=== PATIENT | male | born 1945 | race Caucasian/White ===

== ENCOUNTER 2017-06-11 13:35 | Observation (INO) ==
[2017-06-11] MEDS ORDERED: Aspirin 81 MG TAB.CHEW PO ONE (13:50)
[2017-06-11] MEDS ORDERED: Nitroglycerin 0.4 MG TAB.SUBL SL PRN ×2 (13:55→16:09)
[2017-06-11] MEDS ORDERED: 0.9 % Sodium Chloride 1,000 ML IVC ONE ×2 (13:56→15:40)
[2017-06-11 14:10] LABS: Basophils % 0.7 %; Eosinophils # 0.2 K/mcL (0.0-0.6); Eosinophils % 3.3 %; Hematocrit 38.9 % (37.5-50.1); Hemoglobin 13.8 g/dL (12.9-16.9); Immature Granulocytes % 0.7 % (0-4); Lymphocytes # 0.7 K/mcL (0.6-4.6); Lymphocytes % 13.3 %; Mean Corpuscular HGB Conc 35.5 g/dL (31.6-35.5); Mean Corpuscular Hemoglobin 31.2 pg (28.0-33.3); Mean Corpuscular Volume 87.8 fL (83.0-100.0); Mean Platelet Volume 8.6 fL (9.4-12.4); Monocytes # 0.6 K/mcL (0.0-1.3); Monocytes % 10.2 %; Neutrophils # 3.9 K/mcL (1.6-8.9); Platelet Count 244 K/mcL (140-400); Red Blood Count 4.43 M/mcL (4.19-5.50); Red Cell Distribution Width 13.1 % (11.5-14.5); Segmented Neutrophils % 71.8 %
[2017-06-11 14:15] LABS: Prothrombin Time 10.7 Seconds (9.4-12.1)
[2017-06-11 14:17] LABS: Activated Partial Thrombo Time 33.4 Seconds (26.0-36.0)
[2017-06-11 14:20] LABS: Calcium 9.4 mg/dL (8.6-10.8); Potassium 3.7 mEq/L (3.5-4.5)
--- NOTE | 2017-06-11 14:57 | Emergency Department Note ---
Disposition Clinical Impression: Unstable angina CKD (chronic kidney disease) Qualifiers: Chronic kidney disease stage: unspecified stage Qualified Code(s): N18.9 - Chronic kidney disease, unspecified Disposition: Admitted As Inpatient Condition: Fair Time of Disposition: 15:14 General Adult HPI - General Chief complaint: ED Chest Pain Stated complaint: Chest Pain Time Seen by Provider: 06/11/17 13:49 Source: patient Limitations: no limitations Nursing Notes Reviewed: Yes Vital Signs Reviewed: Yes - History of Present Illness HPI Narrative: 72-year-old male presents to the emergency department after his auto bumper straightener Dr. Hernandez sent him here with concern for worsening chest tightness over the period of the last 4 weeks has gotten increasingly worse for him. The patient has a known history of coronary artery disease with 3 stent placement. The patient's stating that he has episodes that last approximately 3-15 seconds at a time. He states that they happen multiple times. Says that he has chest tightness that radiates up into his neck as well as his left arm. Patient states nothing makes it better. Patient's out of his nitroglycerin. Pain Scale: 10 - Related Data Home Medications Medication Instructions Recorded Confirmed ALPRAZolam [Xanax 1 MG Tablet] 06/11/17 Gabapentin [Neurontin] 06/11/17 Oxycodone Myristate [Xtampza ER] 06/11/17 Ranolazine [Ranexa] 06/11/17 Allergies Allergy/AdvReac Type Severity Reaction Status Date / Time No Known Allergies Allergy Verified 06/11/17 13:39 All systems ED: reviewed and negative except as stated. Review of Systems: As Per HPI Constitutional: Denies: fever Cardiovascular: Reports: chest pain Respiratory: Denies: dyspnea Gastrointestinal: Reports: nausea. Denies: abdominal pain, vomiting Genitourinary: Denies: urgency Musculoskeletal: Denies: back pain Integumentary: Denies: rash Neurological: Denies: headache Psychiatric: Denies: anxiety Past Medical History - Past Medical History Medical history: Reports: hypertension Psychiatric history: Reports: no psych history - Social History Smoking Status: Former smoker Smokeless Tobacco Status: No Alcohol use: Reports: none Drug use: Reports: none Physical Exam General: Well-appearing male who clenches his chest for approximately few seconds appears to be in moderate distress. Head: autraumatic, EOMI, no conjuncitval pallor, no scleral icterus, Mouth: oral mucous membranes moist Neck: neck soft, trachea midline Chest:: Equal chest wall rise Lungs: Normal lungs sounds bilaterally, no wheezes, no respiratory distress Heart: normal heart sounds, normal rate and rhythm, Abdomen: soft, non-tender, no rigidity, no guarding, no rebdound tenderness Lower Extremities: no pedal edema, calves non-tender Integumentary: Skin warm, dry, and intact Neuro: Alert Psych: normal affect, normal mood - General Limitations: no limitations General appearance: alert, in no apparent distress Course Vital Signs Temperature 97.8 F 06/11/17 13:40 Pulse Rate 73 06/11/17 13:40 Respiratory Rate 18 06/11/17 13:40 Blood Pressure 138/76 06/11/17 13:40 O2 Sat by Pulse Oximetry 91 06/11/17 13:40 Temperature 97.8 F 06/11/17 13:40 Pulse Rate 54 06/11/17 14:50 Respiratory Rate 16 06/11/17 14:50 Blood Pressure 112/69 06/11/17 14:50 O2 Sat by Pulse Oximetry 96 06/11/17 14:50 Oxygen Delivery Oxygen Delivery Room Air Medical Decision Making - MDM Narrative Medical decision making narrative: This is a 72-year-old male past medical history of 3 stents due to coronary artery disease. Patient presents to the emergency department after his auto bumper straightener Dr. Hernandez sent him here with concern for his worsening chest pain. Patient is having episodes of chest tightness with radiation to his neck and left arm that are concerning for unstable angina. Patient is not having any new acute changes on his electrocardiogram that are concerning for STEMI or NSTEMI at this time. Troponin was negative. Chest x-ray was also negative. Patient's creatinine shows elevation of 2.44. Patient does have previous history of chronic kidney disease, but I have no records to show if this is an acute process or chronic. I have spoken to Dr. Sanchez, his csm consultant and he states that his last creatinine was 2.4 with a GFR of 27. I have consulted Dr. Hernandez, the auto bumper straightener regarding this patient as he has had several episodes of this chest tightness in the emergency department that was unresponsive to sublingual nitroglycerin. He stated he would come down and see the patient and decide whether he would want to perform a heart catheterization or not. I admitted this patient to the hospitalist. It was recommended that I start nitroglycerin drip as well as IV heparin. Patient has already been Provided 325 aspirin in the emergency department. I discussed the plan with the patient and and they agree with the plan of admitting. Cardiology has come down and they are currently in the room examining the patient. Patient has been given 2 L of normal saline here in the emergency department. Chest X-Ray 06/11/17 13:49 IMPRESSION: Focal opacity in the left lung base may represent focal atelectasis versus consolidation from pneumonia. D/ / 06/11/2017 15:31:54 Jsoh Sierra MD / petey Interpreting Provider: Josh Sierra MD Vital Signs Temperature 97.8 F 06/11/17 13:40 Pulse Rate 73 06/11/17 13:40 Respiratory Rate 18 06/11/17 13:40 Blood Pressure 138/76 06/11/17 13:40 O2 Sat by Pulse Oximetry 91 06/11/17 13:40 Temperature 97.8 F 06/11/17 13:40 Pulse Rate 54 06/11/17 14:50 Respiratory Rate 16 06/11/17 14:50 Blood Pressure 112/69 06/11/17 14:50 O2 Sat by Pulse Oximetry 96 06/11/17 14:50 Oxygen Delivery Oxygen Delivery Room Air - Medical Records Medical records reviewed: Yes I reviewed the patient's medical records. - Lab Data Lab results reviewed: Yes I reviewed the patient's lab results. Result diagrams: 06/11/17 13:54 06/11/17 13:54 Lab Results 06/11/17 06/11/17 06/11/17 Range/Units 13:54 13:54 13:54 WBC 5.4 (4.3-11.1) K/mcL RBC 4.43 (4.19-5.50) M/mcL Hgb 13.8 (12.9-16.9) g/dL Hct 38.9 (37.5-50.1) % MCV 87.8 (83.0-100.0) fL MCH 31.2 (28.0-33.3) pg MCHC 35.5 (31.6-35.5) g/dL RDW 13.1 (11.5-14.5) % Plt Count 244 (140-400) K/mcL MPV 8.6 L (9.4-12.4) fL Immature Gran % 0.7 (0-4) % Seg Neutrophils % 71.8 % Lymphocytes % 13.3 % Monocytes % 10.2 % Eosinophils % 3.3 % Basophils % 0.7 % Neutrophils # 3.9 (1.6-8.9) K/mcL Lymphocytes # 0.7 (0.6-4.6) K/mcL Monocytes # 0.6 (0.0-1.3) K/mcL Eosinophils # 0.2 (0.0-0.6) K/mcL Basophils # 0.0 (0.0-0.2) K/mcL PT 10.7 (9.4-12.1) Seconds INR 1.0 APTT 33.4 (26.0-36.0) Seconds Sodium 142 (136-145) mEq/L Potassium 3.7 (3.5-4.5) mEq/L Chloride 104 (98-109) mEq/L Carbon Dioxide 28 (19-29) mEq/L BUN 31 H (8-26) mg/dL Creatinine 2.44 H (0.72-1.25) mg/dL Est GFR ( Amer) 32 L (> 60) Est GFR (Non-Af Amer) 26 L (> 60) BUN/Creatinine Ratio 13 (6-26) Glucose 100 H (70-99) mg/dL Calculated Osmolality 301 H (280-300) Calcium 9.4 (8.6-10.8) mg/dL Troponin I (0-0.03) ng/mL 06/11/17 Range/Units 13:54 WBC (4.3-11.1) K/mcL RBC (4.19-5.50) M/mcL Hgb (12.9-16.9) g/dL Hct (37.5-50.1) % MCV (83.0-100.0) fL MCH (28.0-33.3) pg MCHC (31.6-35.5) g/dL RDW (11.5-14.5) % Plt Count (140-400) K/mcL MPV (9.4-12.4) fL Immature Gran % (0-4) % Seg Neutrophils % % Lymphocytes % % Monocytes % % Eosinophils % % Basophils % % Neutrophils # (1.6-8.9) K/mcL Lymphocytes # (0.6-4.6) K/mcL Monocytes # (0.0-1.3) K/mcL Eosinophils # (0.0-0.6) K/mcL Basophils # (0.0-0.2) K/mcL PT (9.4-12.1) Seconds INR APTT (26.0-36.0) Seconds Sodium (136-145) mEq/L Potassium (3.5-4.5) mEq/L Chloride (98-109) mEq/L Carbon Dioxide (19-29) mEq/L BUN (8-26) mg/dL Creatinine (0.72-1.25) mg/dL Est GFR ( Amer) (> 60) Est GFR (Non-Af Amer) (> 60) BUN/Creatinine Ratio (6-26) Glucose (70-99) mg/dL Calculated Osmolality (280-300) Calcium (8.6-10.8) mg/dL Troponin I 0.01 (0-0.03) ng/mL - Radiology Data Radiology results reviewed: Yes I reviewed the patient's radiology results. - EKG Data EKG #1 EKG attestation: Yes I reviewed and interpreted this EKG. EKG results narrative: 13:53 Ventricular rate 66 bpm, NC interval 234 ms, QRS duration 105 ms, QT 409 ms, QTC 423 ms, normal axis. Sinus rhythm with a ventricular rate of 66 bpm. First-degree AV block and deep Q waves in the inferior leads suggestive of an old infarct. No previous EKG to compare this study too.
[2017-06-11] MEDS ORDERED: *HR* Morphine 2 MG/ML SYRINGE IVP ONE (15:09)
[2017-06-11 15:38] LABS: Bilirubin,Urine Negative (Negative); Blood,Urine Negative (Negative); Clarity,Urine Clear (Clear); Color,Urine Yellow (Yellow); Glucose,Urine (UA) Normal (Normal); Ketones,Urine Negative (Negative); Leukocyte Esterase,Urine Negative (Negative); Nitrite,Urine Negative (Negative); PH,Urine 6.5 pH Units (5.0-8.0); Protein,Urine Negative (Neg-Trace); Specific Gravity,Urine 1.015 (1.010-1.025); Urobilinogen,Urine Normal (Normal)
[2017-06-11] MEDS ORDERED: *HR* Heparin 5,000 UNIT/ML VIAL IVP PRN ×2 (15:39)
[2017-06-11] MEDS ORDERED: *HR* Heparin 5,000 UNIT/ML VIAL IVP ONE (15:39)
--- NOTE | 2017-06-11 15:43 | Emergency Department Note ---
START Narrative - START START: I examined this patient and my medical decision-making was reviewed with the Resident Physician. I agree with the documented findings, disposition and treatment plan as described except to the extent set forth below. 72 year old male who is a patient of Dr. Hernandez and sent to us by cardology nurse practioner has a history of 3 vessle CABG and stents and states that he has had progressive midsternal chest pain with exertional dyspnea and was instructed to come here for further evlaution and managent for his unstable angina and admitted. His chest pain is curently present and we have stated nitro drip and heparin drip per request of the hospitalist and cardiioogy will see him as consult. P
[2017-06-11] MEDS ORDERED: Heparin 25,000 UNIT/500 ML D5W 25,000 UNIT/500 ML MLS IVC SCH (15:45)
--- NOTE | 2017-06-11 15:54 | Internal Med History&Physical ---
<DuncanKiet - Last Filed: 06/11/17 16:14> Date of Encounter: 06/11/17 Time of Encounter: 15:51 Assessment and Plan (1) Unstable angina Current visit: Yes Status: Acute Patient presents with typical substernal chest pain that is worse with exertion and relieved with rest He has been started on heparin and nitroglycerin drip in the ED Cardiology has been consulted, appreciate recommendations on if he needs left heart cath; will make NPO for now Initial troponin is negative, will trend 2 Continue with home aspirin, beta boy, statin (2) YAZMIN (acute kidney injury) Current visit: Yes Status: Acute Patient's initial creatinine was 2.44, but we are unsure of his baseline We will hold his home Lasix for now until we can trend his creatinine Avoid nephrotoxic agents and closely monitor electrolytes (3) CHF (congestive heart failure) Current visit: Yes Status: Chronic Unclear if patient has systolic or diastolic CHF as there is no echocardiogram in our system We will not initiate diuresis at this time as we are unsure of baseline kidney function and patient's edema is better than baseline We will follow cardiology recommendations if patient will get catheterization and would need echocardiogram (4) Hypertension Current visit: Yes Status: Chronic Blood pressure within normal limits upon arrival to ED We will continue his home anti-hypertensive medications (5) CAD (coronary artery disease) Current visit: Yes Status: Chronic Patient continues to be in chest pain and troponins have been negative Continue on home aspirin, beta boy, Lipitor (6) DVT prophylaxis Current visit: Yes Status: Acute Heparin drip as above Internal Medicine - H&P: HPI Chief complaint: Chest pain Admitted From: Home Plans for Post Hospital Care: Home History of present illness: Mr. Cantu is a 72 year old male who presents to the emergency department with 5 weeks of intermittent chest pain. He states that his physician Dr. Hernandez told him to report to the emergency department. He describes it as left-sided and radiates to his left arm and up his neck and reports this is similar to when he had previous heart attacks. Although he has chest pain even at rest, the pain is worse with exertion and relieved with rest. He also reports having shortness of breath during this time. Patient denies any hemoptysis, nausea, vomiting, diaphoresis, palpitations but does have some dizziness. Of note, patient does have previous [place] including having 4 stents placed, but does not remember when he had his last cath. He also has history of high blood pressure and congestive heart failure and is on diuretics at home. Past Med Surg Social Fam HX - Past Medical History Medical history: hypertension Psychiatric history: no psych history - Social History Smoking Status: Former smoker Smokeless Tobacco Status: No Alcohol use: none Drug use: none Internal Medicine - H&P: Meds ALPRAZolam [Xanax 1 MG Tablet] 1 mg PO DAILY PRN 06/11/17 [History] Amlodipine Besylate 10 mg PO DAILY 06/11/17 [History] Aspirin 81 mg PO DAILY 06/11/17 [History] Atorvastatin [Lipitor] 40 mg PO HS 06/11/17 [History] Carvedilol 3.125 mg PO BID 06/11/17 [History] Cholecalciferol (Vitamin D3) [Vitamin D] 2,000 unit PO DAILY 06/11/17 [History] Cyanocobalamin (Vitamin B-12) [Vitamin B12] 2,500 mcg PO DAILY 06/11/17 [History ] Furosemide [Lasix] 40 mg PO BID 06/11/17 [History] Gabapentin [Neurontin] 300 mg PO QID 06/11/17 [History] Nitroglycerin [Nitrostat] 0.4 mg SL Q5M PRN 06/11/17 [History] [place]-3/Dha/Epa/Fish Oil [Fish Oil 1,000 mg Softgel] 1,000 mg PO DAILY 06/11/17 [History] Oxycodone HCl 15 mg PO Q6H PRN 06/11/17 [History] Oxycodone Myristate [Xtampza ER] 18 mg PO Q12H 06/11/17 [History] Ranolazine [Ranexa] 1,000 mg PO BID 06/11/17 [History] Sodium Bicarbonate 1,300 mg PO BID 06/11/17 [History] Tizanidine HCl 4 mg PO TID PRN 06/11/17 [History] metOLazone [Zaroxolyn] 2.5 mg PO 2XW PRN 06/11/17 [History] 3 Allergy/AdvReac Type Severity Reaction Status Date / Time No Known Allergies Allergy Verified 06/11/17 13:39 All Systems PM: A 10-system review of systems was performed and is negative for pertinent findings except as documented above in the HPI. - Constitutional Constitutional: no chills, no fever(s), no night sweats - EENT Eyes: no change in vision, no discharge, no pain, no photophobia Ears: no ear discharge, no ear pain, no tinnitus Nose, mouth and throat: no dysphagia, no nasal discharge, no neck pain, no sore throat - Cardiovascular Cardiovascular ROS IM: chest pain, dyspnea, dyspnea on exertion, no diaphoresis , no lightheadedness, no palpitations, no syncope - Respiratory Respiratory: no cough, no dyspnea, no wheezing, no excessive phlegm production - Gastrointestinal Gastrointestinal: no abdominal pain, no diarrhea, no hematemesis, no hematochezia, no melena, no nausea, no vomiting - Musculoskeletal Musculoskeletal ROS IM: no numbness, no tingling - Integumentary Integumentary IM: no rash, no unusual bruising - Neurological Neurological ROS: dizziness, no confusion, no convulsions, no focal weakness, no numbness, no tingling, no tremor(s) - Hematologic/Lymphatic Hematologic/Lymphatic: no easy bruising - Constitutional Vitals: Temp Pulse Resp BP Pulse Ox 97.8 F 54 16 112/69 96 06/11/17 13:40 06/11/17 14:50 06/11/17 14:50 06/11/17 14:50 06/11/17 14:50 General appearance: Present: cooperative, mild distress (from chest pain), pleasant, answers questions appropriately - Head Head exam: Present: atraumatic, normocephalic - Eye Eye exam: Present: PERRL, conjuntiva pink, sclera anicteric - Neck Neck exam general surgery: Present: supple, trachea midline. Absent: lymphadenopathy - Respiratory Respiratory exam: Present: CTAB. Absent: accessory muscle use, rales, rhonchi, wheezes - Cardiovascular Cardiovascular exam: Present: RRR, +S1, +S2. Absent: diastolic murmur, gallop, rubs, systolic murmur - GI/Abdominal GI/Abdominal exam: Present: normal bowel sounds, soft, no peritoneal signs. Absent: distended, tenderness - Extremities Exam Extremities exam: Present: pedal edema (1+ pitting bilaterally), warm, radial pulses palpable and symmetrical. Absent: calf tenderness, cyanotic - Neurological Exam Neurological exam: Present: alert, oriented X3, no focal deficits. Absent: facial droop, speech deficit - Skin Skin exam: Present: dry, intact Internal Med - H&P Results - Labs CBC & Chem 7: 06/11/17 13:54 06/11/17 13:54 <AbdirahmanAshley darnell - Last Filed: 06/11/17 17:24> Date of Encounter: 06/11/17 Internal Medicine - H&P: HPI History of present illness: Mr. Cantu is a 72 year old male All Systems PM: A 10-system review of systems was performed and is negative for pertinent findings except as documented above in the HPI. - Constitutional Vitals: Temp Pulse Resp BP Pulse Ox 97.8 F 54 16 112/69 96 06/11/17 13:40 06/11/17 14:50 06/11/17 14:50 06/11/17 14:50 06/11/17 14:50 Internal Med - H&P Results - Labs CBC & Chem 7: 06/11/17 13:54 06/11/17 13:54 - Attending Attestation I examined this patient and my medical decision-making was reviewed with the Resident Physician. I agree with the documented findings, disposition and treatment plan as described except to the extent set forth below. Mr. Cantu is a 72 year old male with a relevant past medical history of CAD with reported 4 stents, HTN, hyperlipidemia. Patient presented to [facility] with complaints of mid sternal chest pain. Patient states he has been having intermittent chest pain for the past couple of weeks. Patient reports chest pain is mostly with exertion. Patient reports worse episode of chest pain was this morning. Since pt morning pt has been having severe recurrent left substernal chest pain radiating to his Left arm. While I am talking to him he did express active chest pain Gen: A, A, O x3 - moderate distress with pain Heart: S1 S2 + RRR No murmurs Chest: Diminished BS b/l a/p 1. Acute unstable angina 2. h/o CAD s/p stents will admit the pt into step down unit No acute EKG changes.. So far negative initial trop Nitro gtt, Heparin gtt, ASA and cont home meds Card consulted stat 2. YAZMIN vs CKD does not know baseline will start him on Acetylcystien Hold on diuretics and Nephrotoxic meds May consult Nephro 3. Chronic CHF will get 2 D Ehco
[2017-06-11] MEDS ORDERED: Acetaminophen 325 MG TABLET PO PRN (16:06)
[2017-06-11] MEDS ORDERED: Ondansetron ODT 4 MG TAB.RAPDIS SL PRN (16:06)
[2017-06-11] MEDS ORDERED: *HR* Morphine 2 MG/ML SYRINGE IVP PRN (16:06)
[2017-06-11] MEDS ORDERED: Naloxone 0.4 MG/ML INJ IVP PRN (16:06)
[2017-06-11] MEDS ORDERED: ALPRAZolam 1 MG TABLET PO PRN (16:09)
[2017-06-11] MEDS: Nitroglycerin 25 MG/250 ML INFUS..BTL IVC SCH ×4 (16:23→19:00)
--- NOTE | 2017-06-11 16:24 | Cardiology Consult Note ---
Date of Encounter: 06/11/17 Time of Encounter: 15:45 Assessment and Plan (1) Unstable angina Current Visit: Yes Status: Acute Per cardiology: -Presented with chest pain with exertion. -Admits to current chest pain. -States symptoms progressive over the past couple of weeks. -Troponin negative. -NO acute ischemic ECG changes. -Recommend heparin drip and nitro drip (ordered by ED physician). -Will give 150mg of plavix now. -Will check CK now and repeat troponin now. -Will continue to monitor. (2) YAZMIN (acute kidney injury) Current Visit: Yes Status: Acute Per cardiology: -Creatinine 2.41. Unknown baseline. -Patient reports history of CKD, however states at his last nephro appointment, Physician said creatinine was "good." -Records requested from nephrology office, reports followed in [place]. -Per discussion with , will consult neprhology. -Spoke with regarding consult. (3) CAD (coronary artery disease) Current Visit: Yes Status: Chronic Per cardiology: -Reports history of CAD with reported 4 previous stents. -On asa, statin, beta boy, and plavix. -Will obtain records from guest services ambassador office. Qualifiers: Coronary Disease-Associated Artery/Lesion type: [place] artery [place] vs. transplanted heart: [place] heart Associated angina: with unstable angina Qualified Code(s): I25.110 - Atherosclerotic heart disease of [place] coronary artery with unstable angina pectoris Discussion w patient/family: The assessment and plan as outlined above was discussed with the patient and/or family members who expressed understanding and agreement. All questions were answered. Thank you for involving us in the care of your patient. Please call with any questions. Patient seen and examined with . History of Present Illness Consult date: 06/11/17 Requesting physician: Tony Christensen Consult reason: unstable angina Chief complaint: chest pain History of present illness: Mr. Cantu is a 72 year old male with a relevant past medical history of CAD with reported 4 stents, HTN, hyperlipidemia. Patient presented to [facility] with complaints of mid sternal chest pain. Patient states he has been having intermittent chest pain for the past couple of weeks. Patient reports chest pain is mostly with exertion. Patient reports worse episode of chest pain was this morning. Patient reports associated shortness of breath. Patient denies nausea, vomiting, or diaphoresis. Patient admits to current chest pain. Patient states his primary guest services ambassador is , however states has not seen for a while due to moving to [place] and issues with insurance credentialing. Past Med Surg Social Fam HX - Past Medical History Attestation: Yes The following information was validated with the patient. Source: patient, obtained from family Medical history: hypertension Psychiatric history: no psych history - Social History Smoking Status: Former smoker Smokeless Tobacco Status: No Alcohol use: none Drug use: none Medications and Allergies ALPRAZolam [Xanax 1 MG Tablet] 1 mg PO DAILY PRN 06/11/17 [History] Amlodipine Besylate 10 mg PO DAILY 06/11/17 [History] Aspirin 81 mg PO DAILY 06/11/17 [History] Atorvastatin [Lipitor] 40 mg PO HS 06/11/17 [History] Carvedilol 3.125 mg PO BID 06/11/17 [History] Cholecalciferol (Vitamin D3) [Vitamin D] 2,000 unit PO DAILY 06/11/17 [History] Cyanocobalamin (Vitamin B-12) [Vitamin B12] 2,500 mcg PO DAILY 06/11/17 [History ] Furosemide [Lasix] 40 mg PO BID 06/11/17 [History] Gabapentin [Neurontin] 300 mg PO QID 06/11/17 [History] Nitroglycerin [Nitrostat] 0.4 mg SL Q5M PRN 06/11/17 [History] Maud-3/Dha/Epa/Fish Oil [Fish Oil 1,000 mg Softgel] 1,000 mg PO DAILY 06/11/17 [History] Oxycodone HCl 15 mg PO Q6H PRN 06/11/17 [History] Oxycodone Myristate [Xtampza ER] 18 mg PO Q12H 06/11/17 [History] Ranolazine [Ranexa] 1,000 mg PO BID 06/11/17 [History] Sodium Bicarbonate 1,300 mg PO BID 06/11/17 [History] Tizanidine HCl 4 mg PO TID PRN 06/11/17 [History] metOLazone [Zaroxolyn] 2.5 mg PO 2XW PRN 06/11/17 [History] 3 Allergy/AdvReac Type Severity Reaction Status Date / Time No Known Allergies Allergy Verified 06/11/17 13:39 All Systems Review: A 10-system review of systems was performed and is negative for pertinent findings except as documented above in the HPI. - Cardiovascular Cardiovascular: as per HPI, chest pain with exertion, dyspnea on exertion Physical Examination Vital Signs Temperature 97.8 F 06/11/17 13:40 Pulse Rate 73 06/11/17 13:40 Respiratory Rate 18 06/11/17 13:40 Blood Pressure 138/76 06/11/17 13:40 O2 Sat by Pulse Oximetry 91 06/11/17 13:40 Temperature 97.8 F 06/11/17 13:40 Pulse Rate 54 06/11/17 14:50 Respiratory Rate 16 06/11/17 14:50 Blood Pressure 112/69 06/11/17 14:50 O2 Sat by Pulse Oximetry 96 06/11/17 14:50 Oxygen Delivery Oxygen Delivery Room Air General: Conversant, No Apparent Distress HEENT: Atraumatic, Normocephaly, Mucus Membranes Moist Neck: No JVD, Normal carotid pulses Cardiac: Reg Rate and Rhythm, Normal S1 and S2, No Murmur Lungs: Normal Breath Sounds, No Wheeze, Rales, Rhonchi Neuro: Alert and responsive, No focal deficits noted Abdomen: Soft, Non-Tender Skin: No rashes noted on visualized skin Musculoskeletal: No Chest Wall Tenderness Extremities: No Clubbing, No Cyanosis, No Edema, Normal Pulses Results 06/11/17 13:54 06/11/17 13:54 Impressions Chest X-Ray 06/11/17 13:49 IMPRESSION: Focal opacity in the left lung base may represent focal atelectasis versus consolidation from pneumonia. D/ / 06/11/2017 15:31:54 Josh Sierra MD / [email or web address] Interpreting Provider: Josh Sierra MD Active Medications Acetaminophen (Tylenol) 650 mg PO Q6HR PRN PRN Reason: Mild Pain (1-3) Stop: 12/11/17 16:07 Alprazolam (Xanax) 1 mg PO DAILY PRN; Protocol PRN Reason: Anxiety Stop: 12/11/17 16:10 Amlodipine Besylate (Norvasc) 10 mg PO DAILY [facility] Stop: 12/12/17 09:01 Aspirin (Aspirin) 81 mg PO DAILY [facility] Stop: 12/12/17 09:01 Atorvastatin Calcium (Lipitor) 40 mg PO HS [facility] Stop: 12/11/17 21:01 Carvedilol (Coreg) 3.125 mg PO BID [facility] Stop: 12/11/17 21:01 Heparin Sodium (Porcine) (Heparin) 4,000 unit IVP Q6HR PRN PRN Reason: SEE COMMENTS Stop: 12/11/17 15:40 Heparin Sodium (Porcine) (Heparin) 2,000 unit IVP Q6H PRN PRN Reason: SEE COMMENTS Stop: 12/11/17 15:40 Heparin Sodium/Dextrose (Heparin 25,000 Unit/500 Ml D5w) 25,000 unit in 500 mls @ 20.042 mls/hr IVC .Q24H TORY; 8.4 UNIT/KG/HR PRN Reason: Protocol Stop: 12/11/17 15:46 Nitroglycerin (Nitroglycerin Premix 25 Mg/250 Ml) 25 mg in 250 mls @ 3 mls/hr IVC .Q24H TORY; 5 MCG/MIN PRN Reason: Protocol Stop: 12/11/17 15:46 Morphine Sulfate (Morphine Sulfate) 2 mg IVP Q4HR PRN PRN Reason: Severe Pain (7-10) Stop: 12/11/17 16:07 Naloxone HCl (Narcan) 0.4 mg IVP Q2MIN PRN PRN Reason: Opioid Reversal Stop: 12/11/17 16:07 Nitroglycerin (Nitroglycerin) 0.4 mg SL Q5MIN PRN PRN Reason: Chest Pain Stop: 12/11/17 13:56 Last Admin: 06/11/17 14:05 Dose: 0.4 mg Nitroglycerin (Nitroglycerin) 0.4 mg SL Q5M PRN PRN Reason: Chest Pain Stop: 12/11/17 16:10 Ondansetron HCl (Zofran Odt) 4 mg SL Q8HR PRN PRN Reason: Nausea And Vomiting Stop: 12/11/17 16:07 Laboratory Tests 06/11/17 06/11/17 06/11/17 13:54 13:54 13:54 Hgb 13.8 Creatinine 2.44 H Est GFR (Non-Af Amer) 26 L Troponin I 0.01 - Imaging and Cardiology Chest Xray: report reviewed - EKG Interpretation EKG results cardiology: personally reviewed (ECG with SR, with non-specific ST changes. Unknown baseline ECG.) Consult Discharge Plan - Plan Referrals: Elena Romo MD [Primary Care Provider] -
[2017-06-11] MEDS ORDERED: Tirofiban 12.5 MG/250ML 12.5 MG/250 ML BAG IVC SCH (17:30)
[2017-06-11 18:53] LABS: Calcium 8.7 mg/dL (8.6-10.8); Potassium 3.4 mEq/L (3.5-4.5)
[2017-06-12 06:28] LABS: Hematocrit 35.6 % (37.5-50.1); Hemoglobin 12.3 g/dL (12.9-16.9); Mean Corpuscular HGB Conc 34.6 g/dL (31.6-35.5); Mean Corpuscular Hemoglobin 30.8 pg (28.0-33.3); Mean Corpuscular Volume 89.2 fL (83.0-100.0); Mean Platelet Volume 9.1 fL (9.4-12.4); Platelet Count 192 K/mcL (140-400); Red Blood Count 3.99 M/mcL (4.19-5.50)
[2017-06-12 06:50] LABS: Calcium 8.6 mg/dL (8.6-10.8); Potassium 3.4 mEq/L (3.5-4.5)
[2017-06-12] MEDS: amLODIPine 5 MG TABLET PO SCH ×2 (07:41→08:53)
[2017-06-12] MEDS: Aspirin 81 MG TAB.CHEW PO SCH (07:44)
[2017-06-12] MEDS: *HR* Acetylcysteine 20% 600 MG/3 ML ORAL SYRINGE PO SCH ×2 (08:36→21:21)
--- NOTE | 2017-06-12 08:48 | Internal Med Progress Note ---
<Kiet Duncan - Last Filed: 06/12/17 08:45> Date of Encounter: 06/12/17 Time of Encounter: 08:45 - Assessment and plan (1) Unstable angina Current Visit: Yes Status: Acute Assessment and plan: Patient remains on heparin and nitroglycerin drip that was started in the ED Cardiology has been consulted, they will plan on C once kidney function improve Troponins remain negative x5 Continue with home aspirin, beta boy, statin (2) CKD (chronic kidney disease) Current Visit: Yes Status: Acute Assessment and plan: Nephrology consulted, appreciate recommendations Patient's creatinine improved to 1.90 from 2.44, but we are unsure of his baseline He does follow with a ldr nurse at another facility and we are awaiting records We will hold his home diuretics for now Avoid nephrotoxic agents and closely monitor electrolytes Qualifiers: Chronic kidney disease stage: unspecified stage Qualified Code(s): N18.9 - Chronic kidney disease, unspecified (3) CHF (congestive heart failure) Current Visit: Yes Status: Chronic Assessment and plan: Unclear if patient has systolic or diastolic CHF as there is no echocardiogram in our system We will not initiate diuresis at this time as we are unsure of baseline kidney function and patient does not appear fluid overloaded We will follow cardiology recommendations if patient will get catheterization and would need echocardiogram Qualifiers: Congestive heart failure type: unspecified congestive heart failure type Congestive heart failure chronicity: unspecified congestive heart failure chronicity Qualified Code(s): I50.9 - Heart failure, unspecified (4) Hypertension Current Visit: Yes Status: Chronic Assessment and plan: Blood pressure have remained within normal limits We will continue his home anti-hypertensive medications Qualifiers: Hypertension type: essential hypertension Qualified Code(s): I10 - Essential (primary) hypertension (5) CAD (coronary artery disease) Current Visit: Yes Status: Chronic Assessment and plan: Patient's chest pain resolved and troponins have been negative Continue on home aspirin, beta boy, Lipitor Qualifiers: Coronary Disease-Associated Artery/Lesion type: [place] artery [place] vs. transplanted heart: [place] heart Associated angina: with unstable angina Qualified Code(s): I25.110 - Atherosclerotic heart disease of [place] coronary artery with unstable angina pectoris (6) DVT prophylaxis Current Visit: Yes Status: Acute Assessment and plan: Remains on heparin ggt - Subjective Interval history: Pt seen and examined. He states that his chest pain and shortness of breath have resolved since last night and he is comfortable laying in bed. No issues with fever, nausea, vomiting, diarrhea. - Constitutional Vitals: Temp Pulse Resp BP Pulse Ox 97.8 F 58 14 128/81 95 06/12/17 07:34 06/12/17 07:34 06/12/17 07:34 06/12/17 07:34 06/12/17 04:56 General appearance: Present: cooperative, pleasant, obese, answers questions appropriately. Absent: mild distress - Head Head exam: Present: atraumatic, normocephalic - Eye Eye exam: Present: PERRL, conjuntiva pink, sclera anicteric - Neck Neck exam general surgery: Present: supple, trachea midline. Absent: lymphadenopathy - Respiratory Respiratory exam: Present: CTAB. Absent: accessory muscle use, rales, rhonchi, wheezes - Cardiovascular Cardiovascular exam: Present: bradycardia, +S1, +S2. Absent: diastolic murmur, gallop, rubs, systolic murmur - GI/Abdominal GI/Abdominal exam: Present: normal bowel sounds, soft, no peritoneal signs. Absent: distended, tenderness - Extremities Exam Extremities exam: Present: pedal edema (trace pitting bilaterally), warm, radial pulses palpable and symmetrical. Absent: calf tenderness, cyanotic - Neurological Exam Neurological exam: Present: alert, no focal deficits. Absent: pronater drift, facial droop, speech deficit - Skin Skin exam: Present: dry, intact Internal Medicine: Result - Labs CBC & Chem 7: 06/12/17 05:53 06/12/17 05:53 Labs: Short CBC 06/12/17 Range/Units 05:53 WBC 6.0 (4.3-11.1) K/mcL Hgb 12.3 L D (12.9-16.9) g/dL Hct 35.6 L (37.5-50.1) % Plt Count 192 (140-400) K/mcL BMP 06/11/17 06/12/17 17:42 05:53 Sodium 144 139 Potassium 3.4 L 3.4 L Chloride 105 107 Carbon Dioxide 27 23 BUN 27 H 23 Creatinine 2.20 H 1.90 H Glucose 105 H 108 H Calcium 8.7 8.6 Cardiac Enzymes 06/11/17 06/11/17 06/12/17 Range/Units 17:42 23:30 01:47 Troponin I 0.02 0.02 0.02 (0-0.03) ng/mL 06/12/17 Range/Units 05:53 Troponin I 0.01 (0-0.03) ng/mL - ABG Interpretation ABG results: PT/INR, D-dimer PT 10.7 Seconds (9.4-12.1) 06/11/17 13:54 Consult Discharge Plan - Plan Referrals: Dasia Henry, GOVERNMENT AFFAIRS DIRECTOR [Advanced Practice Nurse] - 06/20/17 11:45 am <Nir Mello T - Last Filed: 06/12/17 15:36> Date of Encounter: 06/12/17 - Constitutional Vitals: Temp Pulse Resp BP Pulse Ox 98.3 F 68 14 119/76 95 06/12/17 11:14 06/12/17 11:14 06/12/17 11:14 06/12/17 11:14 06/12/17 04:56 Internal Medicine: Result - Labs CBC & Chem 7: 06/12/17 05:53 06/12/17 05:53 Labs: Short CBC 06/12/17 Range/Units 05:53 WBC 6.0 (4.3-11.1) K/mcL Hgb 12.3 L D (12.9-16.9) g/dL Hct 35.6 L (37.5-50.1) % Plt Count 192 (140-400) K/mcL BMP 06/11/17 06/12/17 17:42 05:53 Sodium 144 139 Potassium 3.4 L 3.4 L Chloride 105 107 Carbon Dioxide 27 23 BUN 27 H 23 Creatinine 2.20 H 1.90 H Glucose 105 H 108 H Calcium 8.7 8.6 Cardiac Enzymes 06/11/17 06/11/17 06/12/17 Range/Units 17:42 23:30 01:47 Troponin I 0.02 0.02 0.02 (0-0.03) ng/mL 06/12/17 Range/Units 05:53 Troponin I 0.01 (0-0.03) ng/mL - ABG Interpretation ABG results: PT/INR, D-dimer PT 10.7 Seconds (9.4-12.1) 06/11/17 13:54 - Attending Attestation I examined this patient and my medical decision-making was reviewed with the Resident Physician. I agree with the documented findings, disposition and treatment plan as described except to the extent set forth below. 72 M with CAD, CKD at least stage III, CHFpEF he is admitted and being managed for unstable angina At time of review, he is chest pain free and denies new complains, he does have a known hx of CKD Apart from Obesity, physical exam is unremarkable, chest is CTAB, S1, S2 only, no m/g/r, abdomen is benign Labs and Imaging reviewed-hypokalemia, renal function seem to be improving ECHO/Stress test pending Plan is to d/c heparin/aggrastat drip per cardio, follow final recommendation, follow stress test report. Obtain records from PCP/[facility]. Ambulate patient Rest of details as in resident physician's documentation
[2017-06-12] MEDS: 0.9 % Sodium Chloride 1,000 ML IVC SCH ×2 (09:02→19:39)
--- NOTE | 2017-06-12 09:43 | Nephrology Consult Note ---
Date of Encounter: 06/12/17 Time of Encounter: 09:41 Assessment and Plan (1) CKD (chronic kidney disease) Current Visit: Yes Status: Acute Patient states he does have CKD but is unsure which stage. Awaiting medical records from his surgical manager Dr Sanchez in [place] Kidney function already improving-Scr 1.90, GFR 35 If patient scheduled for cath recommend Mucomyst and gentle IV fluids to protect the kidneys Qualifiers: Chronic kidney disease stage: unspecified stage Qualified Code(s): N18.9 - Chronic kidney disease, unspecified (2) Unstable angina Current Visit: Yes Status: Acute per cardiology team (3) CHF (congestive heart failure) Current Visit: Yes Status: Chronic per primary/cardiology teams Qualifiers: Congestive heart failure type: unspecified congestive heart failure type Congestive heart failure chronicity: unspecified congestive heart failure chronicity Qualified Code(s): I50.9 - Heart failure, unspecified History of Present Illness - Reason for Consult Consult date: 06/12/17 - Chief Complaint Unstable angina, YAZMIN, HTN - History of Present Illness Mr Cantu is a very pleasant 72 year old male who was admitted for a 5 weeks duration of intermittent chest pain. He has a history of previous LA and has had 4 stents placed. PMH includes HTN, CHF, and CKD-stage unknown. He follows with Dr Sanchez, surgical manager in [place], but cannot remember what his kidney function is or what stage he is in. Cardiology is considering a heart cath and we have been asked to manage his CKD while hospitalized. Past Med Surg Social Fam HX - Past Medical History Medical history: hypertension, renal disease Psychiatric history: no psych history - Social History Smoking Status: Former smoker Smokeless Tobacco Status: No Alcohol use: none Drug use: none Medications and Allergies ALPRAZolam [Xanax 1 MG Tablet] 1 mg PO DAILY PRN 06/11/17 [History] Amlodipine Besylate 10 mg PO DAILY 06/11/17 [History] Aspirin 81 mg PO DAILY 06/11/17 [History] Atorvastatin [Lipitor] 40 mg PO HS 06/11/17 [History] Carvedilol 3.125 mg PO BID 06/11/17 [History] Cholecalciferol (Vitamin D3) [Vitamin D] 2,000 unit PO DAILY 06/11/17 [History] Cyanocobalamin (Vitamin B-12) [Vitamin B12] 2,500 mcg PO DAILY 06/11/17 [History ] Furosemide [Lasix] 40 mg PO BID 06/11/17 [History] Gabapentin [Neurontin] 300 mg PO QID 06/11/17 [History] Nitroglycerin [Nitrostat] 0.4 mg SL Q5M PRN 06/11/17 [History] [place]-3/Dha/Epa/Fish Oil [Fish Oil 1,000 mg Softgel] 1,000 mg PO DAILY 06/11/17 [History] Oxycodone HCl 15 mg PO Q6H PRN 06/11/17 [History] Oxycodone Myristate [Xtampza ER] 18 mg PO Q12H 06/11/17 [History] Ranolazine [Ranexa] 1,000 mg PO BID 06/11/17 [History] Sodium Bicarbonate 1,300 mg PO BID 06/11/17 [History] Tizanidine HCl 4 mg PO TID PRN 06/11/17 [History] metOLazone [Zaroxolyn] 2.5 mg PO 2XW PRN 06/11/17 [History] 3 Allergy/AdvReac Type Severity Reaction Status Date / Time No Known Allergies Allergy Verified 06/11/17 13:39 Review of Systems All Systems: reviewed and no additional remarkable complaints except as stated Constitutional: malaise, no anorexia, no fatigue Cardiovascular: chest pain, chest pain at rest, chest pain with activity, dyspnea, dyspnea on exertion Gastrointestinal: no nausea, no vomiting Neurological: no behavioral changes Exam - Vital Signs Vital signs: Initial Vital Signs Temp Pulse Resp BP Pulse Ox 97.8 F 73 18 138/76 91 06/11/17 13:40 06/11/17 13:40 06/11/17 13:40 06/11/17 13:40 06/11/17 13:40 Vital Signs - Last 8 Hours Temp Pulse Resp BP Pulse Ox 06/12/17 08:15 53 06/12/17 07:34 97.8 F 58 14 128/81 06/12/17 06:30 49 127/70 06/12/17 05:00 51 114/72 06/12/17 04:56 97.8 F 59 17 109/66 95 06/12/17 04:00 48 121/56 06/12/17 03:25 51 06/12/17 03:17 72 121/83 Intake and Output 06/11/17 06/12/17 06/12/17 23:59 07:59 15:59 Intake Total 500 / 500 300 / 300 Output Total 1300 / 1300 550 / 550 Balance -800 / -800 -250 / -250 Intake: IV Fluids 500 / 500 300 / 300 Heparin 25,000 UNIT/500 ML D5W 300 / 300 25,000 unit In 500 ml @ 8.4 UNIT/KG/HR 20.042 mls/hr IVC . Q24H [facility] Rx#:[id number] Nitroglycerin Premix 25 MG/250 500 / 500 ML 25 mg In 250 ml @ 5 MCG/MIN 3 mls/hr IVC .Q24H TORY Rx#: [id number] Oral 0 / 0 Output: Urine 1300 / 1300 550 / 550 Other: Weight 117.6 kg Blood Glucose* 105 Patient Weight 06/12/17 23:59 Weight 117.6 kg - General Appearance General appearance: well-developed, well-nourished EENT: ATNC, mucous membranes moist, hearing intact, vision intact Neck: supple Respiratory: clear Cardiology: no edema, normal S1, normal S2 Gastrointestinal: no tenderness, no guarding Integumentary: warm and dry Neurologic: alert and oriented x3 Psychiatric: mood/affect appropriate, cooperative Results - Lab Results 06/12/17 05:53 06/12/17 05:53 Most recent lab results Calcium 8.6 mg/dL (8.6-10.8) 06/12/17 05:53 Consult Discharge Plan - Plan Referrals: Dasia Henry CNP [Advanced Practice Nurse] - 06/20/17 11:45 am
--- NOTE | 2017-06-12 10:33 | Cardiology Progress Note ---
Date of Encounter: 06/12/17 Time of Encounter: 08:00 Assessment and Plan (1) Unstable angina Current Visit: Yes Status: Acute Per cardiology: -Presented with chest pain with exertion. -Denies current chest pain, however states has back pain /10. -States symptoms progressive over the past couple of weeks. -Troponins negative x5. -NO acute ischemic ECG changes. -On nitro, heparin, and aggrastat drips. -Discussed and reviewed with , Primary coating mixer, who recommends nuclear stress test. -Discussed and reviewed with patient who is agreeable to proceed with stress test. Nitro stopped. -Discussed with , reading coating mixer, who is ok with stress starting two hours after nitro discontinued. Nitro discontinued at 1000. -Further recommendations pending stress. (2) YAZMIN (acute kidney injury) Current Visit: Yes Per cardiology: -Creatinine 2.41 on admission. Unknown baseline. -Patient reports history of CKD, however states at his last nephro appointment, Physician said creatinine was "good." -Creatinine today 1.9. -Records requested from nephrology office, reports followed in [place]. -Of note, creatinine documented in previous cardiology note, noted to be 1.96 on 03/20/16. -Management per primary and neprhology services. (3) CAD (coronary artery disease) Current Visit: Yes Status: Chronic Per cardiology: -Reports history of CAD with reported 4 previous stents. -Previous cardiology progress notes with [facility] 03/2016 with severe triple vessel disease with previous stent sites mid RCA, ostial and mid circumflex, and mid LAD wideley patent. Moderate obstruction ostial circumflex. Right not clinically significant. -On asa, statin, beta boy, and plavix. -Stress today. Qualifiers: Coronary Disease-Associated Artery/Lesion type: [place] artery [place] vs. transplanted heart: [place] heart Associated angina: with unstable angina Qualified Code(s): I25.110 - Atherosclerotic heart disease of [place] coronary artery with unstable angina pectoris Discussion w patient/family: The assessment and plan as outlined above was discussed with the patient who expressed understanding and agreement. All questions were answered. Thank you for involving us in the care of your patient. Please call with any questions. Patient seen and examined with . Subjective Principal diagnosis: unstable angina Interval history: Patient reports chest pain improved today. Patient reports back pain and rates 1 /10. Objective Vital Signs, Last 4 Hours Temp Pulse Resp BP 06/12/17 08:15 53 06/12/17 07:34 97.8 F 58 14 128/81 General: Conversant, No Apparent Distress HEENT: Atraumatic, Normocephaly, Mucus Membranes Moist Neck: No JVD, Normal carotid pulses Cardiac: Reg Rate and Rhythm, Normal S1 and S2, No Murmur Lungs: Normal Breath Sounds, No Wheeze, Rales, Rhonchi Neuro: Alert and responsive, No focal deficits noted Abdomen: Soft, Non-Tender Skin: No rashes noted on visualized skin Musculoskeletal: No Chest Wall Tenderness Extremities: No Clubbing, No Cyanosis, No Edema, Normal Pulses Results 06/12/17 05:53 06/12/17 05:53 Lab Results Impressions Chest X-Ray 06/11/17 13:49 IMPRESSION: Focal opacity in the left lung base may represent focal atelectasis versus consolidation from pneumonia. D/ : / 06/11/2017 15:31:54 Josh Sierra MD / [email or web address] Interpreting Provider: Josh Sierra MD Active Medications Acetaminophen (Tylenol) 650 mg PO Q6HR PRN PRN Reason: Mild Pain (1-3) Stop: 12/11/17 16:07 Acetylcysteine (Acetylcysteine 20%) 600 mg PO BID [facility] Stop: 06/13/17 09:01 Last Admin: 06/12/17 08:36 Dose: 600 mg Alprazolam (Xanax) 1 mg PO DAILY PRN; Protocol PRN Reason: Anxiety Stop: 12/11/17 16:10 Amlodipine Besylate (Norvasc) 10 mg PO DAILY [facility] Stop: 12/12/17 09:01 Last Admin: 06/12/17 08:53 Dose: 10 mg Aspirin (Aspirin) 81 mg PO DAILY [facility] Stop: 12/12/17 09:01 Last Admin: 06/12/17 07:44 Dose: 81 mg Atorvastatin Calcium (Lipitor) 80 mg PO HS [facility] Stop: 12/12/17 21:01 Carvedilol (Coreg) 3.125 mg PO BID [facility] Stop: 12/11/17 21:01 Last Admin: 06/12/17 07:41 Dose: Not Given Heparin Sodium (Porcine) (Heparin) 4,000 unit IVP Q6HR PRN PRN Reason: SEE COMMENTS Stop: 12/11/17 15:40 Heparin Sodium (Porcine) (Heparin) 2,000 unit IVP Q6H PRN PRN Reason: SEE COMMENTS Stop: 12/11/17 15:40 Last Admin: 06/12/17 07:43 Dose: 2,000 unit Heparin Sodium/Dextrose (Heparin 25,000 Unit/500 Ml D5w) 25,000 unit in 500 mls @ 20.042 mls/hr IVC .Q24H TORY; 8.4 UNIT/KG/HR PRN Reason: Protocol Stop: 12/11/17 15:46 Last Titration: 06/12/17 07:44 Dose: 10.4 unit/kg/hr, 24.813 mls/hr Tirofiban/Sodium Chloride (Aggrastat 12.5 Mg/250 Ml) 12.5 mg in 250 mls @ 10.737 mls/hr IVC .[id number] TORY PRN Reason: 0.075 MCG/KG/MIN Stop: 06/12/17 11:30 Last Admin: 06/11/17 18:37 Dose: 0.075 mcg/kg/min, 10.737 mls/hr Sodium Chloride (0.9 % Sodium Chloride) 1,000 mls @ 100 mls/hr IVC .Q10H TORY Stop: 06/12/17 20:46 Last Admin: 06/12/17 09:02 Dose: 100 mls/hr Morphine Sulfate (Morphine Sulfate) 2 mg IVP Q4HR PRN PRN Reason: Severe Pain (7-10) Stop: 12/11/17 16:07 Naloxone HCl (Narcan) 0.4 mg IVP Q2MIN PRN PRN Reason: Opioid Reversal Stop: 12/11/17 16:07 Ondansetron HCl (Zofran Odt) 4 mg SL Q8HR PRN PRN Reason: Nausea And Vomiting Stop: 12/11/17 16:07 Laboratory Tests 06/11/17 06/11/17 06/11/17 13:54 13:54 13:54 Hgb Creatinine 2.44 H Creatine Kinase 237 H Troponin I 0.01 LDL Cholesterol, Calc 10/25/17 10/25/17 10/25/17 17:42 17:42 17:42 Hgb Creatinine 2.20 H Creatine Kinase 185 Troponin I 0.02 LDL Cholesterol, Calc 06/11/17 06/12/17 06/12/17 23:30 01:47 05:53 Hgb 12.3 L D Creatinine Creatine Kinase Troponin I 0.02 0.02 LDL Cholesterol, Calc 06/12/17 06/12/17 05:53 05:53 Hgb Creatinine 1.90 H Creatine Kinase Troponin I 0.01 LDL Cholesterol, Calc 106 H - Imaging and Cardiology Chest Xray: report reviewed Stress Test: pending - EKG Interpretation EKG results cardiology: other (Telemetry reviewed with average HR previous 12 hours noted to be 53, sinus bradycardia. PVCs and PACs noted.) Consult Discharge Plan - Plan Referrals: Dasia Henry CNP [Advanced Practice Nurse] - 06/20/17 11:45 am
[2017-06-12] MEDS ORDERED: Regadenoson 0.4 MG/5 ML SYRINGE IVP ONE (10:35)
--- NOTE | 2017-06-12 11:18 | Electrocardiograph Report ---
[place] [id number] Test Date: 2017-06-11 Pat Name: Donna Cantu Department: 104 Room: 2N02 Gender: M Con[place] Operator: EKP : [id number] Requested By: Stiven Reza Order Number: [id number] Reading MD: Ajay Pablo MD Measurements Intervals Trilla Rate: 66 P: 69 RI: 234 QRS: 6 QRSD: 105 T: 28 QT: 409 QTc: 423 Interpretive Statements SINUS RHYTHM WITH SINUS ARRHYTHMIA WITH FIRST DEGREE AV BLOCK INFERIOR MYOCARDIAL INFARCTION, PROBABLY OLD Electronically Signed On 06-12-2017 11:16:05 EDT by Ajay Pablo MD
[2017-06-13 06:19] LABS: Calcium 8.6 mg/dL (8.6-10.8); Potassium 3.5 mEq/L (3.5-4.5)
[2017-06-13 06:23] LABS: Basophils % 0.6 %; Eosinophils # 0.2 K/mcL (0.0-0.6); Eosinophils % 3.6 %; Hematocrit 37.8 % (37.5-50.1); Immature Granulocytes % 1.6 % (0-4); Lymphocytes # 0.6 K/mcL (0.6-4.6); Lymphocytes % 12.2 %; Mean Corpuscular HGB Conc 34.4 g/dL (31.6-35.5); Mean Platelet Volume 8.8 fL (9.4-12.4); Monocytes # 0.4 K/mcL (0.0-1.3); Monocytes % 8.1 %; Neutrophils # 3.8 K/mcL (1.6-8.9); Platelet Count 196 K/mcL (140-400); Red Cell Distribution Width 13.1 % (11.5-14.5); Segmented Neutrophils % 73.9 %
[2017-06-13] MEDS: Aspirin 81 MG TAB.CHEW PO SCH (07:52)
[2017-06-13] MEDS: amLODIPine 5 MG TABLET PO SCH (07:53)
--- NOTE | 2017-06-13 08:22 | Discharge Summary ---
<Kiet Duncan - Last Filed: 06/13/17 08:20> Date of Encounter: 06/13/17 Time of Encounter: 08:20 - Discharge Diagnosis (1) Unstable angina Priority: Primary Status: Resolved (2) CKD (chronic kidney disease) Priority: Secondary Status: Acute Qualifiers: Chronic kidney disease stage: unspecified stage Qualified Code(s): N18.9 - Chronic kidney disease, unspecified (3) CHF (congestive heart failure) Priority: Secondary Status: Chronic Qualifiers: Congestive heart failure type: unspecified congestive heart failure type Congestive heart failure chronicity: unspecified congestive heart failure chronicity Qualified Code(s): I50.9 - Heart failure, unspecified (4) Hypertension Priority: Secondary Status: Chronic Qualifiers: Hypertension type: essential hypertension Qualified Code(s): I10 - Essential (primary) hypertension (5) CAD (coronary artery disease) Priority: Secondary Status: Chronic Qualifiers: Coronary Disease-Associated Artery/Lesion type: [place] artery [place] vs. transplanted heart: [place] heart Associated angina: with unstable angina Qualified Code(s): I25.110 - Atherosclerotic heart disease of [place] coronary artery with unstable angina pectoris (6) DVT prophylaxis Priority: Secondary Status: Acute - Discharge Medications Prescriptions: Isosorbide MONOnitrate (24 HR) [Imdur] 60 mg PO DAILY #30 tab.er.24h Home Medications: ALPRAZolam [Xanax 1 MG Tablet] 1 mg PO DAILY PRN 06/11/17 [History] Amlodipine Besylate 10 mg PO DAILY 06/11/17 [History] Aspirin 81 mg PO DAILY 06/11/17 [History] Atorvastatin [Lipitor] 40 mg PO HS 06/11/17 [History] Carvedilol 3.125 mg PO BID 06/11/17 [History] Cholecalciferol (Vitamin D3) [Vitamin D3] 2,000 unit PO DAILY 06/11/17 [History] Cyanocobalamin (Vitamin B-12) [Vitamin B12] 2,500 mcg PO DAILY 06/11/17 [History ] Furosemide [Lasix] 40 mg PO BID 06/11/17 [History] Gabapentin [Neurontin] 300 mg PO QID 06/11/17 [History] Nitroglycerin [Nitrostat] 0.4 mg SL Q5M PRN 06/11/17 [History] Cocoa-3/Dha/Epa/Fish Oil [Fish Oil 1,000 mg Softgel] 1,000 mg PO DAILY 06/11/17 [History] Oxycodone HCl 15 mg PO Q6H PRN 06/11/17 [History] Oxycodone Myristate [Xtampza ER] 18 mg PO Q12H 06/11/17 [History] Ranolazine [Ranexa] 1,000 mg PO BID 06/11/17 [History] Sodium Bicarbonate 1,300 mg PO BID 06/11/17 [History] Tizanidine HCl 4 mg PO TID PRN 06/11/17 [History] metOLazone [Zaroxolyn] 2.5 mg PO 2XW PRN 06/11/17 [History] Isosorbide MONOnitrate (24 HR) [Imdur] 60 mg PO DAILY #30 tab.er.24h 06/13/17 [ Rx] Allergies/Adverse Reactions: 3 Allergy/AdvReac Type Severity Reaction Status Date / Time No Known Allergies Allergy Verified 06/11/17 13:39 Procedures/tests Complete & Pending: Procedures Performed prior 72 hours Category Date Time Status NM lamar perf SPECT multi [NM] Routine Exams 06/12/17 10:23 Taken SP pharm nuclear stress Routine Y 06/12/17 10:23 Completed Date of admission: 06/11/17 15:29 Primary care physician: Elena Romo MD Consults: 06/11/17 15:40 Consult to Cardiology [CONS] Routine Comment: Consulting Provider: Cardiology Delaney Reason for Consult: unstable angina Time Notified: 15:41 Call Completed: Yes 06/11/17 16:46 Consult to Nephrology [CONS] Stat Consulting Provider: Jack Mobley Reason for Consult: elevated creatinine, unknown baseline Call Completed: Yes Discharging clinician: Kiet Duncan Anticipated date of discharge: 06/13/17 - Patient Status Disposition: Home, Self-Care Condition: Fair Functional capacity at discharge: independent ambulation Overall status at discharge: patient is progressing back to baseline - Discharge Instructions Instructions: Isosorbide Mononitrate (By mouth), Chest Pain (DC), Heart Healthy Diet (DC) Follow Up With: Leonid Hernandez DO [Partnered Physician] - (CARDIOLOGY OFFICE WILL CALL PATIENT WITH AN APPOINTMENT) Dasia Henry CNP [Advanced Practice Nurse] - 06/20/17 11:45 am Additional Instructions: Please follow up with your PCP within 1 - 2 weeks. Follow up with your inspector weights and measures Dr. Hernandez within 1 week. If chest pain returns, please take Nitroglycerin tablets and if persists, return to ED - Diet and Activity Activity: increase activity as tolerated Diet: low fat, low cholesterol Hospital course: Mr. Cantu is a 72 year old male who presented with 5 weeks of intermittent chest pain that occurred even at rest. He does have significant cardiac history including 4 stents. His troponins were negative x 5 and there were no EKG abnormalities other than borderline sinus bradycardia. He was started on Heparin and Nitro ggt in the ED due to concern of unstable angina/NSTEMI. Cardiology saw patient and was initially planning on cathing patient but his creatinine was elevated at 2.4 and we were unsure of his baseline as he has no previous visits here. Upon further review he did have CKD and followed with a card grader, and his kidney function improved each day. Cardiology decided to forego the cath and instead ordered a pharmacologic stress test which was negative for ischemia. Patient this morning has not had any chest pain or shortness of breath since the first day of admission and is eager to go home. His blood pressures were slightly elevated but cardiology has recommended that he start on Imdur on top of his home meds upon discharge. He will follow up closely with his inspector weights and measures Dr. Hernandez and also his PCP within 1-2 weeks and instructed to return to the ED if his chest pain persists. - Time Spent with Patient Total time spent providing and/or coordinating discharge services: Greater than 30 minutes - Constitutional Vitals: Temp Pulse Resp BP Pulse Ox 98.3 F 74 17 169/99 96 06/13/17 07:10 06/13/17 07:10 06/13/17 07:10 06/13/17 07:10 06/13/17 07:10 General appearance: Present: cooperative, pleasant, no acute distress, obese, answers questions appropriately - Head Head exam: Present: atraumatic, normocephalic - Eye Eye exam: Present: PERRL, conjuntiva pink, sclera anicteric - Neck Neck exam general surgery: Present: supple, trachea midline. Absent: lymphadenopathy - Respiratory Respiratory exam: Present: CTAB. Absent: accessory muscle use, rales, rhonchi, wheezes - Cardiovascular Cardiovascular exam: Present: RRR, +S1, +S2. Absent: diastolic murmur, gallop, rubs, systolic murmur - GI/Abdominal GI/Abdominal exam: Present: normal bowel sounds, soft, no peritoneal signs. Absent: distended, tenderness - Extremities Exam Extremities exam: Present: warm, radial pulses palpable and symmetrical. Absent : calf tenderness, cyanotic, pedal edema - Neurological Exam Neurological exam: Present: alert, no focal deficits. Absent: pronater drift, facial droop, speech deficit - Skin Skin exam: Present: dry, intact <Nir Mello T - Last Filed: 06/13/17 12:32> Date of Encounter: 06/13/17 Procedures/tests Complete & Pending: Procedures Performed prior 72 hours Category Date Time Status NM lamar perf SPECT multi [NM] Routine Exams 06/12/17 10:23 Taken SP pharm nuclear stress Routine Y 06/12/17 10:23 Completed Date of admission: 06/11/17 15:29 Primary care physician: Elena Romo MD Consults: 06/11/17 15:40 Consult to Cardiology [CONS] Routine Comment: Consulting Provider: Cardiology Delaney Reason for Consult: unstable angina Time Notified: 15:41 Call Completed: Yes 06/11/17 16:46 Consult to Nephrology [CONS] Stat Consulting Provider: Jack Mobley Reason for Consult: elevated creatinine, unknown baseline Call Completed: Yes Hospital course: Mr. Cantu is a 72 year old male - Time Spent with Patient Total time spent providing and/or coordinating discharge services: - Constitutional Vitals: Temp Pulse Resp BP Pulse Ox 98.3 F 74 17 157/70 96 06/13/17 07:10 06/13/17 09:17 06/13/17 07:10 06/13/17 09:17 06/13/17 07:10 - Attending Attestation I examined this patient and my medical decision-making was reviewed with the Resident Physician. I agree with the documented findings, disposition and treatment plan as described except to the extent set forth below. 72 M with CAD, CKD at least stage III, CHFpEF HE was admitted for chest pain, nuclear stress test ruled out an infarct Patient is seen this morning, no chest pain Cardiology has added Imdur to home meds physical exam is unremarkable, chest is CTAB, S1, S2 only, no m/g/r, abdomen is benign Labs and Imaging reviewed-Renal function continues to improve Stable for discharge home, follow up with PCP/Helper Driver and Sheltered Workshop Worker. Flu vaccine recommended-patient already received Rest of details as in resident physician's documentation
[2017-06-13] MEDS ORDERED: Isosorbide MONOnitrate (24 HR) 60 MG TAB.ER.24H PO SCH (09:00)
[2017-06-13] MEDS: *HR* Acetylcysteine 20% 600 MG/3 ML ORAL SYRINGE PO SCH (09:14)
[2017-06-13 09:18] VITALS: BP 157/70
[2017-06-16 08:30] LABS: CKMB Percent NOT DONE (0.0-5.0)
[2017-06-16 08:32] LABS: CKMB Percent NOT DONE (0.0-5.0)
== END 2017-06-13 10:21 | disposition home or self-care (01) ==
LOC: 3BNU 13:35 → EMEROO 13:35 → SUATTDRO 15:29 → ICNU 15:56 → 2NNU 06-12 00:17
PROVIDERS: ADMIT Internal Medicine; ATTEND Internal Medicine